=== PATIENT | female | born 1990 | race Caucasian/White ===

== ENCOUNTER 2016-11-16 11:55 | Emergency (ER) | payer OTHER ==
[~2016-11-16] VITALS: Wt 72.6 kg
[~2016-11-16 11:55] MED LIST: AMOXICILLIN500 MG PO; AMOXIL500 MG PO; AUGMENTIN 875 M1 TAB PO; BACTRIM DS 8001 TA1 PO; BENTYL10 MG PO; BIRTH CONTROL1 EAC1 PO; CATAFLAM50 MG PO; CIPRO250 MG PO; CIPRO500 MG PO; CLARITIN10 MG PO; CYCLOBENZAPRINE5 M3 PO; DICLOFENAC POT.50 MG PO; DONNATAL1 TAB PO; FLAGYL500 MG PO; FLEXERIL10 MG PO; FLEXERIL5 MG PO; KEFLEX500 MG PO; LIDEX0.05% T; MACROBID100 M1 PO; MIRALAX POWDER255 GM PO; MOTRIN600 MG PO; MOTRIN800 MG PO; MULTIVITAMIN1 CTB PO; Motrin,Rufen400 MG PO; Motrin,Rufen800 MG PO; NAPROSYN375 MG PO; NAPROSYN500 MG PO; PREDNISONE10 MG; PRILOSEC20 M1 PO; PRILOSEC20 MG PO; PRILOSEC40 MG PO; PROTONIX40 MG PO; PROVENTIL0.09 MG/AC IH; SILVADENE,SSD C50 GM PO; SUNMARK OMEPRAZ20 M1 PO; TAMIFLU75 MG PO; TESSALON PERLE200 MG PO; TOBREX OPHTH S2.5 ML OPH; TRAMADOL HCL50 MG PO; TRI-LO-SPRINTEC1 TAB PO; TRINESSA1 TAB PO; ULTRAM50 MG PO; VIBRAMYCIN100 MG PO; VICO10300 PO; VICODIN 5/500 505 MG; VICODIN 500 MG-1 TAB PO; ZANTAC150 MG PO; ZOFRAN ODT4 MG SL; ZOFRAN4 MG PO; ZOLOFT100 MG PO; Zofran4 MG PO; [UNRECOGNIZED DRUG - REMARK]
[2016-11-16] MEDS ORDERED: IBU800 MG PO (14:13)
== END 2016-11-16 14:27 | disposition home or self-care (01) ==
LOC: ED 11:55
DX: M79.602 Pain in left arm (principal); F17.200 Nicotine dependence, unspecified, uncomplicated; Z88.0 Allergy status to penicillin; Z88.1 Allergy status to other antibiotic agents; Y04.0XXA Assault by unarmed brawl or fight, initial encounter; Y93.89 Activity, other specified; Y92.9 Unspecified place or not applicable; Y99.9 Unspecified external cause status

== ENCOUNTER 2016-12-04 20:17 | Emergency (ER) | payer OTHER ==
[~2016-12-04] VITALS: Ht 157.4 cm; Wt 67.1 kg
[~2016-12-04 20:17] MED LIST changes: +IBU800 MG PO
[2016-12-04] MEDS ORDERED: Motrin,Rufen800 MG PO (22:22)
== END 2016-12-04 22:39 | disposition home or self-care (01) ==
LOC: ED 20:17
DX: S00.83XA Contusion of other part of head, initial encounter (principal); S60.221A Contusion of right hand, initial encounter; F17.200 Nicotine dependence, unspecified, uncomplicated; Z88.0 Allergy status to penicillin; Z88.1 Allergy status to other antibiotic agents; W23.0XXA Caught, crushed, jammed, or pinched between moving objects, initial encounter; Y93.89 Activity, other specified; Y92.810 Car as the place of occurrence of the external cause; Y99.8 Other external cause status

== ENCOUNTER 2017-02-01 00:18 | Emergency (ER) | payer OTHER ==
[~2017-02-01] VITALS: Ht 157.4 cm; Wt 67.6 kg
[2017-02-01] MEDS ORDERED: Motrin,Rufen800 MG PO (01:07)
[2017-02-01] MEDS ORDERED: ULTRAM50 MG PO (01:07)
== END 2017-02-01 01:55 | disposition home or self-care (01) ==
LOC: ED 00:18
DX: T23.001A Burn of unspecified degree of right hand, unspecified site, initial encounter (principal); F17.200 Nicotine dependence, unspecified, uncomplicated; Z88.1 Allergy status to other antibiotic agents; Z88.0 Allergy status to penicillin; X19.XXXA Contact with other heat and hot substances, initial encounter; Y93.89 Activity, other specified; Y92.89 Other specified places as the place of occurrence of the external cause; Y99.8 Other external cause status

== ENCOUNTER 2017-03-03 17:07 | Emergency (ER) | payer OTHER ==
[~2017-03-03] VITALS: Ht 157.4 cm; Wt 65.8 kg
[2017-03-03 18:17] LABS: BASO % 0.2 % (0.0-1.0); EOS % 0.3 % (1.0-4.0); HEMOGLOBIN 13.5 g/dl (12.0-16.0); IG # 0.1 10*3/uL (0.0-0.1); LYMPH # 2.4 10*3/uL (1.3-4.4); LYMPH % 15.1 % (27.0-41.0); MEAN CELL VOLUME 85.7 fl (81.0-99.0); MEAN CORPUSCULAR HGB 29.7 pg (27.0-31.0); MEAN CORPUSCULAR HGB CONC 34.6 g/dl (33.0-37.0); MEAN PLATELET VOLUME 10.2 fl (9.6-12.3); MONO # 0.8 10*3/uL (0.1-1.0); NEUT # 12.5 10*3/uL (2.3-7.9); PLATELET COUNT AUTOMATED 249 10*3/uL (130-400); RED BLOOD COUNT 4.55 10*6/uL (4.10-5.10); RED CELL DISTRI WIDTH 12.8 % (0-14.5); WHITE BLOOD COUNT 15.8 10*3/uL (4.8-10.8)
[2017-03-03 18:36] LABS: ALKALINE PHOSPHATASE 47 U/L (45-117); BILIRUBIN, TOTAL 0.6 mg/dl (0.2-1.0); BUN 9 mg/dl (7-24); CARBON DIOXIDE 21 mmol/L (21-32); CHLORIDE 110 mmol/L (98-107); EST GLOM FILT AFRICAN AMERICAN > 60 ml/min; GLUCOSE 92 mg/dL (65-99); POTASSIUM 3.7 mmol/L (3.5-5.1); SGOT/AST 9 IU/L (3-35); SGPT/ALT 11 U/L (12-78); SODIUM 140 mmol/L (136-145); TOTAL PROTEIN 7.2 gm/dL (6.4-8.2)
[2017-03-03 18:37] LABS: C-REACTIVE PROTEIN < 0.29 MG/DL (0-0.3)
[2017-03-03 18:38] LABS: B-hCG (QUALITATIVE) NEGATIVE (NEGATIVE)
[2017-03-03 18:38] LABS: BILIRUBIN NEGATIVE (NEGATIVE); BLOOD NEGATIVE (NEGATIVE); CLARITY SL CLOUDY (CLEAR); COLOR YELLOW (YELLOW); GLUCOSE NEGATIVE (NEGATIVE); KETONE 1+ (NEGATIVE); LEUKO ESTERASE TRACE (NEGATIVE); NITRITE NEGATIVE (NEGATIVE); PH >= 9.0 (5.0-9.0); PROTEIN 2+ (NEGATIVE); SPECIFIC GRAVITY 1.015 (1.005-1.030)
[2017-03-03 18:43] LABS: BACTERIA 1+; URINE REFLEX COMMENT YES (NO)
[2017-03-03 18:44] LABS: EPITHELIAL CELLS 16-20
[2017-03-03] MEDS ORDERED: ZOFRAN ODT4 MG SL (20:37)
== END 2017-03-03 20:54 | disposition home or self-care (01) ==
LOC: ED 17:07
PROVIDERS: Physician Assistant
DX: K52.9 Noninfective gastroenteritis and colitis, unspecified (principal); F17.200 Nicotine dependence, unspecified, uncomplicated; Z88.0 Allergy status to penicillin; Z88.1 Allergy status to other antibiotic agents

== ENCOUNTER → 2017-10-18 | Outpatient (CLI) | payer OTHER ==
[2017-10-19 08:10] LABS: HEPATITIS B SURFACE AG Negative (Negative); HEPATITIS C VIRUS ANTIBODY <0.1 s/co (0.0-0.9)
== END | disposition home or self-care (01) ==
LOC: LAB 10:58 → US 11:00
PROVIDERS: Obstetrics & Gynecology
DX: Z34.80 Encounter for supervision of other normal pregnancy, unspecified trimester (principal); Z3A.11 11 weeks gestation of pregnancy

== ENCOUNTER 2018-02-01 07:14 | Emergency (ER) | payer OTHER ==
[~2018-02-01] VITALS: Ht 157.4 cm; Wt 79.4 kg
== END 2018-02-01 09:15 | disposition home or self-care (01) ==
LOC: ED 07:14
DX: O26.892 Other specified pregnancy related conditions, second trimester (principal); K08.89 Other specified disorders of teeth and supporting structures; Z3A.26 26 weeks gestation of pregnancy; Z88.1 Allergy status to other antibiotic agents; Z88.0 Allergy status to penicillin; Z91.09 Other allergy status, other than to drugs and biological substances

== ENCOUNTER 2018-03-21 16:29 | Emergency (ER) | payer OTHER ==
[~2018-03-21] VITALS: Ht 157.4 cm; Wt 83.0 kg
[2018-03-21 17:01] LABS: BILIRUBIN NEGATIVE (NEGATIVE); BLOOD TRACE-INTACT (NEGATIVE); CLARITY SL CLOUDY (CLEAR); COLOR YELLOW (YELLOW); GLUCOSE NEGATIVE (NEGATIVE); KETONE TRACE (NEGATIVE); LEUKO ESTERASE NEGATIVE (NEGATIVE); NITRITE NEGATIVE (NEGATIVE); SPECIFIC GRAVITY 1.025 (1.005-1.030); UROBILINOGEN 0.2 E.U./dl (0.2-1.0)
[2018-03-21 17:06] LABS: RBC 0-2 rbc/hpf (0-2)
[2018-03-21 17:07] LABS: BACTERIA 2+; MUCOUS TRACE
== END 2018-03-21 18:13 | disposition home or self-care (01) ==
LOC: ED 16:29
PROVIDERS: Physician Assistant
DX: O26.893 Other specified pregnancy related conditions, third trimester (principal); O99.333 Smoking (tobacco) complicating pregnancy, third trimester; R51 Headache; R11.0 Nausea; F17.200 Nicotine dependence, unspecified, uncomplicated; Z88.0 Allergy status to penicillin; Z88.1 Allergy status to other antibiotic agents; Z3A.33 33 weeks gestation of pregnancy

== ENCOUNTER 2019-01-31 21:27 | Emergency (ER) | payer OTHER ==
[~2019-01-31] VITALS: Ht 157.4 cm; Wt 72.6 kg
[~2019-01-31 21:27] MED LIST changes: +SEPTDS PO
[2019-01-31 21:49] LABS: BILIRUBIN NEGATIVE (NEGATIVE); BLOOD 3+ (NEGATIVE); CLARITY SL CLOUDY (CLEAR); COLOR YELLOW (YELLOW); GLUCOSE NEGATIVE (NEGATIVE); KETONE NEGATIVE (NEGATIVE); LEUKO ESTERASE NEGATIVE (NEGATIVE); NITRITE NEGATIVE (NEGATIVE); SPECIFIC GRAVITY >= 1.030 (1.005-1.030)
[2019-01-31 21:58] LABS: HEMATOCRIT 36.2 % (37.0-47.0); MEAN CELL VOLUME 84.4 fl (81.0-99.0); MEAN CORPUSCULAR HGB CONC 33.1 g/dl (33.0-37.0); MEAN PLATELET VOLUME 9.5 fl (9.6-12.3); PLATELET COUNT AUTOMATED 313 10*3/uL (130-400); RED BLOOD COUNT 4.29 10*6/uL (4.10-5.10); RED CELL DISTRI WIDTH 14.5 % (0-14.5); WHITE BLOOD COUNT 9.7 10*3/uL (4.8-10.8)
[2019-01-31 22:01] LABS: BACTERIA 1+; RBC TNTC rbc/hpf (0-2)
[2019-01-31 22:02] LABS: URINE AMPHETAMINES < 1000 (1000ng/ml); URINE BARBITURATES < 200 (200ng/ml); URINE BENZODIAZEPINES < 200 (200ng/ml); URINE CANNABINOIDS (THC) > 50 (50ng/ml); URINE COCAINE < 300 (300ng/ml); URINE METHADONE < 300 (300ng/ml); URINE OPIATES < 300 (300ng/ml); URINE PHENCYCLIDINE < 25 (25ng/ml)
[2019-01-31 22:18] LABS: ATYPICAL LYMPHS 2 % (0-0); BASOPHILS 1 % (0-1); PLATELET SUFFICIENCY NORMAL (NORMAL); TOTAL CELLS COUNTED 100 #CELLS
[2019-01-31 22:22] LABS: ALBUMIN 3.5 gm/dl (3.1-4.5); ALKALINE PHOSPHATASE 112 U/L (45-117); BUN 10 mg/dl (7-24); CHLORIDE 108 mmol/L (98-107); CREATININE 0.81 mg/dL (0.55-1.02); POTASSIUM 3.7 mmol/L (3.5-5.1); SGOT/AST 23 IU/L (3-35); SGPT/ALT 31 U/L (12-78); SODIUM 139 mmol/L (136-145); TOTAL PROTEIN 7.5 gm/dL (6.4-8.2)
== END 2019-01-31 23:55 | disposition home or self-care (01) ==
LOC: ED 21:27
PROVIDERS: Student in an Organized Health Care Education/Training Program
DX: R10.9 Unspecified abdominal pain (principal); M54.5 Low back pain; R35.8 Other polyuria; F17.200 Nicotine dependence, unspecified, uncomplicated; Z88.1 Allergy status to other antibiotic agents; Z88.0 Allergy status to penicillin

== ENCOUNTER → 2020-07-08 | Outpatient (CLI) | payer OTHER | END | disposition home or self-care (01) | LOC: COVID19 10:35 | PROVIDERS: ATTEND Internal Medicine | DX: Z20.828 Contact with and (suspected) exposure to other viral communicable diseases (principal) ==

== ENCOUNTER 2021-03-29 17:02 | Emergency (ER) | payer OTHER ==
[~2021-03-29] VITALS: Ht 157.4 cm; Wt 88.5 kg
== END 2021-03-29 18:45 | disposition home or self-care (01) ==
LOC: ED 17:02
DX: S63.501A Unspecified sprain of right wrist, initial encounter (principal); E66.9 Obesity, unspecified; F17.200 Nicotine dependence, unspecified, uncomplicated; Z88.1 Allergy status to other antibiotic agents; Z91.048 Other nonmedicinal substance allergy status; Z88.0 Allergy status to penicillin; W01.0XXA Fall on same level from slipping, tripping and stumbling without subsequent striking against object, initial encounter; Y93.89 Activity, other specified; Y92.098 Other place in other non-institutional residence as the place of occurrence of the external cause; Y99.8 Other external cause status